=== PATIENT | female | born 2000 | race Caucasian/White ===

== ENCOUNTER 2020-09-20 13:39 | Emergency (ER) | payer OTHER, SELFPAY ==
[2020-09-20 14:20] VITALS: BP 119/80; PULSE 83; RESP 18; TEMP 36.9; O2SAT 95; BMI 44.0
--- NOTE | 2020-09-20 17:04 | CTR_ITS ---
PROCEDURE INFORMATION: Exam: CT Head Without Contrast Exam date and time: 09/20/2020 5:04 PM Age: 20 years old Clinical indication: Pain; Headache; Migraine; Additional info: Seizure, migraine TECHNIQUE: Imaging protocol: Computed tomography of the head without contrast. Total images: 210 Radiation optimization: All CT scans at this facility use at least one of these dose optimization techniques: automated exposure control; mA and/or kV adjustment per patient size (includes targeted exams where dose is matched to clinical indication); or iterative reconstruction. COMPARISON: No relevant prior studies available. RADIATION DOSE METRICS: Total DLP (mGy-cm): 924.04 FINDINGS: Brain: No evidence of active or acute intracranial pathologic process, hemorrhage, or trauma. No visible evidence of diffuse cerebral edema or generalized demyelination. No mass effect. No midline shift. Cerebral ventricles: No ventriculomegaly. Paranasal sinuses: Visualized sinuses are unremarkable. No fluid levels. Mastoid air cells: Visualized mastoid air cells are well aerated. Bones/joints: Unremarkable. No acute fracture. Soft tissues: Unremarkable. CT/CT head wo con* [id number] IMPRESSION: No evidence of active or acute intracranial pathologic process, hemorrhage, or trauma. Radiation Dose CTDIVOL = (mGy): DLP = 924.04 (mGy-cm)
--- NOTE | 2020-09-20 17:09 | ED_ITS ---
HPI - Headache General: Chief Complaint: Headache Stated Complaint: migraine, seizure, Time Seen by Provider: 09/20/20 17:03 History of Present Illness: HPI Narrative: 20-year-old female comes in today with complaints of migraine headache. Patient medical proxy , male significant other, states that this morning patient had one of her absent seizures. He describes the seizures as where she has nystagmus of her eyes although she may be talkative she will not remember the episode. After having the seizure she is complained of a headache since then. Patient has been having these episodes and has seen a neurologist and eye physician primary care sports medicine regarding the instances. Patient had contacted her primary care office today and they recommended that she be seen in the emergency department. Primary care had recommended patient be seen at a [place] neurologist and they are seeking referral to a [place] neurologist. Review of patient's medications she is on medications for depression, and absence seizures. Patient has also been recently using some hydrocodone for a injured ankle but reports he has not taken that in 2 to 3 days. Since having the seizure this morning patient does report some brain fog . Patient appears well. Vital signs are normal. Review of Systems General: Reports: 10 or more systems reviewed and unremarkable except in HPI and below Neuro: Reports: headache(s) Physical Exam Const: COMMON NORMALS: no acute distress and patient oriented x3 GENERAL APPEARANCE: cooperative HENMT: COMMON NORMALS: normocephalic and Normal external nose present HEAD & SCALP: normal to inspection and normocephalic NOSE: Normal external nose pr esent MOUTH: Normal oral and palatal mucosa present Eye: GENERAL EYE: appearance normal, both eyes and all related structures Neck/C-Spine: COMMON NORMALS: full ROM Lymph: LYMPHATIC: no lymphadenopathy noted Chest: COMMONS NORMALS: normal inspection of the chest Resp: COMMON NORMALS: normal respiratory effort EFFORT & INSPECTION: Yes able to speak in complete sentences Cardio: COMMON NORMALS: regular rate and regular rhythm RATE: regular rate RHYTHM: regular rhythm GI: COMMON NORMALS: non-tender Back/Pelvis: COMMON NORMALS: thoracic and lumbar spine normal to inspection Extremity: COMMON NORMALS: normal to inspection Neuro: COMMON NORMALS: patient oriented x3 and moves all extremities Psych: COMMON NORMALS: mental status grossly normal and cooperative Skin: COMMON NORMALS: no rashes or lesions noted GENERAL SKIN EXAM: no rashes or lesions noted Course Vital Signs: Vital signs: Vital Signs Temperature 98.5 F 09/20/20 14:20 Pulse Rate 67 09/20/20 17:12 Respiratory Rate 16 09/20/20 17:12 Blood Pressure 108/63 09/20/20 17:12 Pulse Oximetry 100 09/20/20 17:12 MDM - Headache MDM Narrative: Medical decision making narrative: Patient comes in today for complaints of seizure episode this morning followed by a headache. Patient continues to have a headache. On exam no focal neural deficits were noted. Pupils are equal and reactive. Pharynx is pink and moist. Patient moves all extremities appropriate. Review of history notes that patient does have a seizure disorder and presently is being treated for absent seizures. Patient has had previous headaches referred seizure episodes but today the family was concerned and brought her into the emergency room seeking referral to a [place] neurologist. Differential diagnosis includes but not limited to migraine headache, tension headache, post ictal headache. Laboratory values were unremarkable. CT of the head she indicated no acute bleed or abnormality. Put in for case management to assist with [place] neurologist per patient's request. Patient has medication available for her routine care and will continue with those medications. Patient to return to the ER as needed for worsening symptoms or new concerns. Lab Data: Labs: Lab Results 09/20/20 09/20/20 09/20/20 Range/Units 14:30 14:30 17:22 WBC 11.0 H (4.0-10.0) 10^3/ uL RBC 4.76 (4.1-5.3) 10^6/u L Hgb 14.2 (11.5-15.3) g/dL Hct 44.4 (37.0-47.0) % MCV 93.3 (81-99) fL MCH 29.8 (28.0-34.0) pg MCHC 32.0 (30.0-36.0) g/dL RDW 13.3 (12.1-15.1) % Plt Count 300 (130-400) 10^3/c mm MPV 10.8 H (7.4-10.4) fL Neut % (Auto) 58.9 % Lymph % (Auto) 26.5 % Wirt % (Auto) 6.9 % Eos % (Auto) 6.5 % Baso % (Auto) 0.9 % Neut # (Auto) 6.47 (1.8-7.7) 10^3/u L Lymph # (Auto) 2.9 (0.8-4.8) 10^3/u L Wirt # (Auto) 0.8 (0.2-0.9) 10^3/u L Eos # (Auto) 0.7 (0.0-0.8) 10^3/u L Baso # (Auto) 0.1 (0.0-0.1) 10^3/u L Nucleated RBC % (a uto) 0 % Nucleated RBCs # 0.0 /100WBC Sodium (136-145) mmol/L Potassium (3.5-5.1) mmol/L Chloride (98-107) mmol/L Carbon Dioxide (22-29) mmol/L Anion Gap (5-19) BUN (6-20) mg/dL Creatinine (0.5-0.9) mg/dL GFR Calculation (90-130) mL/min Glucose (65-115) mg/dL Calculated Osmolal ity (285-295) mOsm/k g Calcium (8.5-10.5) mg/dL Total Bilirubin (0.15-1.2) mg/dL AST (0-32) U/L ALT (0-33) U/L Alkaline Phosphata se (35-105) IU/L Total Protein (6.6-8.7) g/dL Albumin (3.5-5.2) g/dL Globulin (1.3-4.6) g/dL HCG, Qual (Negative) Urine Color Yellow (Yellow) Urine Appearance Hazy A (CLEAR) Urine pH 5 (5-7) Ur Specific Gravit y 1.025 (1.005-1.030) Urine Protein Neg (Negative) Urine Glucose (UA) Norm (Normal) Urine Ketones Negative (Negative) Urine Blood Neg (Negative) Urine Nitrate Negative (Negative) Urine Bilirubin 1+ H (Negative) Urine Urobilinogen 1 H (Negative) mg/dL Ur Leukocyte Millicent ase Negative (Negative) Urine RBC None (0-2) /hpf Urine WBC 0-4 H (0-5) /hpf Ur Squamous Epith Cells 55-80 H (0-5) /hpf Amorphous Sediment Not Reportable Urine Bacteria 2+ H (NONE) /hpf Urine Mucus 1+ /hpf Urine Opiates Scre en Negative (Negative) ng/mL Ur Barbiturates Sc reen Positive H (Negative) ng/mL Ur Phencyclidine S crn Negative (Negative) ng/mL Ur Amphetamines Sc reen Negative (Negative) ng/mL U Benzodiazepines Scrn Negative (Negative) ng/mL Urine Cocaine Scre en Negative (Negative) ng/mL U Marijuana (THC) Screen Negative (Negative) ng/mL 09/20/20 09/20/20 Range/Units 17:22 17:22 WBC (4.0-10.0) 10^3/ uL RBC (4.1-5.3) 10^6/u L Hgb (11.5-15.3) g/dL Hct (37.0-47.0) % MCV (81-99) fL MCH (28.0-34.0) pg MCHC (30.0-36.0) g/dL RDW (12.1-15.1) % Plt Count (130-400) 10^3/c mm MPV (7.4-10.4) fL Neut % (Auto) % Lymph % (Auto) % Wirt % (Auto) % Eos % (Auto) % Baso % (Auto) % Neut # (Auto) (1.8-7.7) 10^3/u L Lymph # (Auto) (0.8-4.8) 10^3/u L Wirt # (Auto) (0.2-0.9) 10^3/u L Eos # (Auto) (0.0-0.8) 10^3/u L Baso # (Auto) (0.0-0.1) 10^3/u L Nucleated RBC % (a uto) % Nucleated RBCs # /100WBC Sodium 138 (136-145) mmol/L Potassium 3.9 (3.5-5.1) mmol/L Chloride 103 (98-107) mmol/L Carbon Dioxide 24 (22-29) mmol/L Anion Gap 14.9 (5-19) BUN 15 (6-20) mg/dL Creatinine 0.7 (0.5-0.9) mg/dL GFR Calculation 104.6 (90-130) mL/min Glucose 84 (65-115) mg/dL Calculated Osmolal ity 286 (285-295) mOsm/k g Calcium 8.8 (8.5-10.5) mg/dL Total Bilirubin 0.3 (0.15-1.2) mg/dL AST 18 (0-32) U/L ALT 10 (0-33) U/L Alkaline Phosphata se 134 H (35-105) IU/L Total Protein 7.3 (6.6-8.7) g/dL Albumin 4.1 (3.5-5.2) g/dL Globulin 3.2 (1.3-4.6) g/dL HCG, Qual Negative (Negative) Urine Color (Yellow) Urine Appearance (CLEAR) Urine pH (5-7) Ur Specific Gravit y (1.005-1.030) Urine Protein (Negative) Urine Glucose (UA) (Normal) Urine Ketones (Negative) Urine Blood (Negative) Urine Nitrate (Negative) Urine Bilirubin (Negative) Urine Urobilinogen (Negative) mg/dL Ur Leukocyte Millicent ase (Negative) Urine RBC (0-2) /hpf Urine WBC (0-5) /hpf Ur Squamous Epith Cells (0-5) /hpf Amorphous Sediment Urine Bacteria (NONE) /hpf Urine Mucus /hpf Urine Opiates Scre en (Negative) ng/mL Ur Barbiturates Sc reen (Negative) ng/mL Ur Phencyclidine S crn (Negative) ng/mL Ur Amphetamines Sc reen (Negative) ng/mL U Benzodiazepines Scrn (Negative) ng/mL Urine Cocaine Scre en (Negative) ng/mL U Marijuana (THC) Screen (Negative) ng/mL Discharge Plan Discharge Patient Disposition: Home Clinical Impression: Seizure disorder Headache Qualifiers: Headache type: unspecified Headache chronicity pattern: acute headache Intractability: not intractable Qualified Code(s): R51.9 - Headache, unspecified Condition: Stable Prescriptions: No Action Aspir-81 486 mg PO Q6H PRN (Reason: Pain) RF: 0 lamotrigine 200 mg tablet 200 mg PO BEDTIME RF: 0 ethosuximide 250 mg capsule 500 mg PO BEDTIME RF: 0 iron 325 mg (65 mg iron) Tablet 325 mg PO DAILY RF: 0 Aleve 220 mg Tablet 220 - 440 mg PO Q4H PRN (Reason: Pain) RF: 0 sertraline 50 mg tablet 50 mg PO DAILY RF: 0 aripiprazole 20 mg tablet 20 mg PO DAILY RF: 0 aripiprazole 5 mg tablet 5 mg PO DAILY RF: 0 Bal[place]tra 0.1 mg-0.02 mg (21)/36.5 mg(7) tablet 1 tab PO DAILY RF: 0 Slyna 4 mg PO DAILY RF: 0 Discharge Orders: Discharge ED (Routine); Ordered 09/20/20 Ordered By: Devyn Green Discharge Diet: Usual diet Discharge Activity: Increase activity as tolerated Patient Instructions: Acute Headache (ED), Opioid Safety Activity Restrictions/Additional Instructions: Home and rest. Drink plenty of fluids. Continue with routine care as directed. Case management will contact you regarding your follow-up appointment with neurology. Return to the emergency room for new concerns or worsening symptoms. Follow-up with primary care as needed. Stand Alone Forms: Work/School Release Coding Level of Care Code ED Flour Blender for Alexandro Fwfadi Exam Comprehensive
[2020-09-20 17:12] VITALS: BP 108/63; PULSE 67; RESP 16; O2SAT 100
[2020-09-20 17:32] LABS: Basophils # 0.1 10^3/uL (0.0-0.1); Basophils % 0.9 %; Eosinophils # 0.7 10^3/uL (0.0-0.8); Eosinophils % 6.5 %; Hematocrit 44.4 % (37.0-47.0); Hemoglobin 14.2 g/dL (11.5-15.3); Lymphocytes # 2.9 10^3/uL (0.8-4.8); Lymphocytes % 26.5 %; Mean Corpuscular Hemoglobin 29.8 pg (28.0-34.0); Mean Corpuscular Volume 93.3 fL (81-99); Mean Platelet Volume 10.8 fL (7.4-10.4); Monocytes # 0.8 10^3/uL (0.2-0.9); Monocytes % 6.9 %; Neutrophils # 6.47 10^3/uL (1.8-7.7); Neutrophils % 58.9 %; Nucleated Red Blood Cells % 0 %; Platelet Count 300 10^3/cmm (130-400); Red Blood Count 4.76 10^6/uL (4.1-5.3); Red Cell Distribution Width 13.3 % (12.1-15.1)
[2020-09-20] MEDS: sodium chloride 0.9% 500 ML IV (17:36)
[2020-09-20] MEDS: metoclopramide 5 mg/mL SDV 2 mL IVP (17:37)
[2020-09-20 17:38] LABS: Add Urine Microscopic? YES; Bilirubin Urine 1+ (Negative); Blood Urine Neg (Negative); Glucose Urine UA Norm (Normal); Ketones Urine Negative (Negative); Leukocyte Esterase Urine Negative (Negative); Nitrate Urine Negative (Negative); Protein Urine Neg (Negative); Specific Gravity, Urine 1.025 (1.005-1.030); Urine Appearance Hazy (CLEAR); Urine Color Yellow (Yellow); Urobilinogen Urine 1 mg/dL (Negative); pH Urine 5 (5-7)
[2020-09-20] MEDS: dexamethasone 4 mg/mL INJ IVP (17:41)
[2020-09-20] MEDS: ketorolac 30 mg/mL INJ 15 MG IVP (17:41)
[2020-09-20 17:45] LABS: WBC Urine 0-4 /hpf (0-5)
[2020-09-20 17:46] LABS: Add Urine Culture? No; Bacteria Urine 2+ /hpf; Mucus Urine 1+ /hpf; Squamous Epithelial Cell Urine 55-80 /hpf (0-5)
[2020-09-20 17:47] LABS: Cocaine Screen Urine Negative (Negative); Opiate Screen Urine Negative (Negative); PCP Screen Urine Negative (Negative); THC Screen Urine Negative (Negative)
[2020-09-20 17:50] LABS: HCG, Serum Qual Negative (Negative)
[2020-09-20 17:53] LABS: Alanine Aminotransferase 10 U/L (0-33); Albumin Level 4.1 g/dL (3.5-5.2); Alkaline Phosphatase 134 IU/L (35-105); Anion Gap 14.9 (5-19); Aspartate Amino Transferase 18 U/L (0-32); Blood Urea Nitrogen 15 mg/dL (6-20); Calcium 8.8 mg/dL (8.5-10.5); Carbon Dioxide 24 mmol/L (22-29); Chloride 103 mmol/L (98-107); Globulin 3.2 g/dL (1.3-4.6); Glomerular Filtration Rate 104.6 mL/min (90-130); Glucose 84 mg/dL (65-115); Osmolality Calculated 286 mOsm/kg (285-295); Potassium 3.9 mmol/L (3.5-5.1); Sodium 138 mmol/L (136-145); Total Bilirubin 0.3 mg/dL (0.15-1.2); Total Protein 7.3 g/dL (6.6-8.7)
[2020-09-20 18:05] LABS: Amphetamines Screen Urine Negative (Negative); Barbiturates Screen Urine Positive (Negative); Benzodiazepines Screen Urine Negative (Negative)
[2020-09-20 19:08] VITALS: BP 106/68; PULSE 77; RESP 16; O2SAT 99
--- NOTE | 2020-09-21 13:59 | DCPLANNER ---
copy manager had message to schedule a follow up appointment for patient with [facility]. copy manager faxed patients information to the [facility] in [place]. Clinic will call patient with appointment information. copy manager will call for appointment information.
--- NOTE | 2020-10-05 10:42 | DCPLANNER ---
ux design manager called to check on appointment for patient. ux design manager was told that the clinic has the referral and is currently working on the referral, will call patient with the appointment information.
== END 2020-09-20 19:13 | disposition home or self-care (01) ==
PROVIDERS: Emergency Provider Nurse Practitioner Family
DX: R51.9 Headache, unspecified (principal); G40.909 Epilepsy, unspecified, not intractable, without status epilepticus; Z79.82 Long term (current) use of aspirin
CPT/HCPCS: 70450; 80053; 80306; 81001; 84703; 85025; 96361; 96374; 96375; 99284; J1100; J1885; J2765; J7040